=== PATIENT | female | born 1985 | race Two or more races ===

== ENCOUNTER 2020-02-16 07:53 | Outpatient (CLI) | payer OTHER | END 2020-02-16 10:27 | disposition home or self-care (01) | LOC: NUCLEAR 07:53 | PROVIDERS: ATTEND Internal Medicine Sports Medicine | DX: E05.80 Other thyrotoxicosis without thyrotoxic crisis or storm (principal); E04.8 Other specified nontoxic goiter | CPT/HCPCS: 78012; A9531 ==

== ENCOUNTER 2020-02-17 09:07 | Outpatient (CLI) | payer OTHER | END 2020-02-17 10:49 | disposition home or self-care (01) | LOC: NUCLEAR 09:07 | PROVIDERS: ATTEND Internal Medicine Sports Medicine | DX: E05.80 Other thyrotoxicosis without thyrotoxic crisis or storm (principal); E04.8 Other specified nontoxic goiter | CPT/HCPCS: 78013; A9512 ==